=== PATIENT | female | born 1995 ===

== ENCOUNTER → 2017-05-08 | Outpatient (REF) | LOC: WSOH 10:40 | DX: Z02.89 Encounter for other administrative examinations (principal) ==

== ENCOUNTER → 2017-05-10 | Outpatient (REF) | LOC: WSOH 15:01 | DX: Z02.89 Encounter for other administrative examinations (principal) ==

== ENCOUNTER → 2017-05-15 | Outpatient (REF) | LOC: WSOH 11:04 | DX: Z11.1 Encounter for screening for respiratory tuberculosis (principal) ==